=== PATIENT | female | born 1970 | race Caucasian/White ===

== ENCOUNTER → 2016-05-14 | Outpatient (CLI) | payer BC ==
--- NOTE | 2016-05-14 16:43 | REPMRS ---
Patient History The patient states she had a clinical breast exam in 04/26 No known family history of cancer. Taking hormonal contraceptives for 6 years. Digital Woman Screen Mammo: May 14, 2016 - Exam #: [id number] Bilateral CC and MLO view(s) were taken. Technologist: Jeanne Nelson, Technologist Prior study comparison: January 10, 2014, digital woman screen mammo performed at [facility]. January 04, 2013, digital woman screen mammo performed at [facility]. July 29, 2011, digital woman screen mammo performed at [facility]. FINDINGS: The breast tissue is heterogeneously dense. This may lower the sensitivity of mammography. There is a moderate amount of heterogeneously dense fibroglandular tissue which is fairly symmetric. There is no interval development of dominant mass, architectural distortion, or clustered microcalcification typical of malignancy. There has been no change in the appearance of the mammogram from the prior studies. ASSESSMENT: BI-RADS/ACR category 1 mammogram. Negative. Recommendation Routine screening mammogram of both breasts in 1 year (for women over age 40). This mammogram was interpreted with the aid of an FDA-approved computer-aided dectection system. Electronically Signed By: Eliud Rose MD 05/14/16 [id number]
== END ==
LOC: M WHC 14:14
PROVIDERS: ATTEND Nurse Practitioner Adult Health
DX: R92.2 Inconclusive mammogram (principal); Z92.0 Personal history of contraception

== ENCOUNTER → 2016-09-27 | Outpatient (CLI) | payer BC ==
--- NOTE | 2016-09-27 17:23 | REP ---
DIAGNOSTIC MAMMOGRAM, LEFT BREAST WITH LEFT BREAST ULTRASOUND: Diagnostic mammogram of the left breast is performed with multiple views obtained. Comparison made with prior study of 05/14/2016 as well as other prior exams. Reportedly there is a palpable abnormality laterally in the left breast and that area is marked on the skin with a triangular marker. Breast parenchyma is moderately heterogeneously dense. There does appear to be a rounded nodular density medially on the left CC view which is not definitely seen on the left MLO or ML views. It appears fairly well defined and smoothly marginated. No definite mass is seen at the site of the reported palpable abnormality. No clustered microcalcifications are seen. Real-time sonographic evaluation of the left breast is performed. Medially at the 10 o'clock position is a simple cyst probably corresponding to the mammographic abnormality. This measures approximately 1.3 cm in diameter. At the site of the reported palpable abnormality there is a complex cyst which measures 1.7 x 1.4 x 1.6 cm. There is a thickened wall with arterial blood flow seen within the wall of the cyst with duplex Doppler evaluation. There are internal septations. A 3 o'clock is an oval hypoechoic nodular area 1.5 x 1.0 x 1.4 cm. This could represent a solid nodule. Otherwise there is diffusely dense tissue seen with other small scattered cysts. IMPRESSION: ACR 4 suspicious. Nodular density medially on the left CC view corresponds to a simple cyst by ultrasound. At the site at the reported palpable abnormality laterally, a complex cyst is seen with a thickened wall, with arterial blood flow seen in the thickened wall of the cyst. There are internal septations. Recommend ultrasound guided biopsy. Also at 3 o'clock is a possible hypoechoic nodule only seen sonographically measuring 1.5 x 1.0 x 1.4 cm. Recommend ultrasound guided biopsy. This mammogram was interpreted with the aid of an FDA-approved computer-aided detection system. The patient states she had a clinical breast exam in 09/2016. The patient letter being requested is M4. Signed by Andrade Almaguer MD 09/30/2016 09:00 A
== END ==
LOC: M RAD 13:45
PROVIDERS: ATTEND Nurse Practitioner Family
DX: N63 Unspecified lump in breast (principal)
CPT/HCPCS: 76642; G0206

== ENCOUNTER → 2016-11-05 | Outpatient (CLI) | payer BC ==
[~2016-11-05] MED LIST: ACETAMINOPHEN 325 MG TAB As Ordered ONE; LIDOCAINE 1% MDV 20ML VIAL As Ordered ONE
--- NOTE | 2016-11-05 14:51 | REP ---
POST BIOPSY MAMMOGRAM LEFT BREAST: Post biopsy mammogram left breast performed in the MLO and CC projections. Two ultrasound guided biopsies were performed. A metallic clip is seen at the site of the prior palpable abnormality where by ultrasound a complex cystic structure was seen. Another metallic clip is seen inferiorly and laterally at the site of a second biopsy. Signed by Andrade Almaguer MD 11/05/2016 05:22 P
--- NOTE | 2016-11-05 18:13 | REP ---
LEFT BREAST BIOPSY TIMES TWO SITES: The procedure was performed by LEE Miranda under the direct supervision of Dr. Almaguer. The procedure along with its risks, benefits and complications were discussed with the patient prior to the examination. Informed consent was obtained both verbally and written. The patient was identified in the ultrasound suite and placed in a supine position. A procedural time out was performed to ensure that the correct patient, site and procedure were being performed. The two sites of concern were marked using ultrasound guidance. An appropriate site was chosen for needle entry and these areas were marked prepped and draped in the usual sterile fashion. Local infiltrative anesthesia was achieved using 1% Xylocaine. 6 core biopsy specimens were obtained from the first location. Ultrasound imaging was used to monitor the location of the needle placement for each pass. A marker clip was placed. The second area of concern was identified using real-time ultrasonography. 10 core biopsy specimens were obtained from the site. Ultrasound imaging was used to monitor the location of the needle placement for each pass. Specimens were placed in formalin and sent to pathology for further evaluation. Results pending. Following the procedure the wound was cleaned and compressed. Steri-strips and sterile gauze were applied. The patient was monitored for an hour post-procedure. The second biopsy site had a small hematoma. A 1-hour post procedure ultrasound was obtained to evaluate this hematoma. It was seen that there was no change to the hematoma. The patient tolerated the procedure well and was discharged home. IMPRESSION: Successful ultrasound guided core biopsy of two left breast lesions of concern. Reviewed by LEE Sanchez 11/05/2016 06:48 PEdited and Signed by Andrade Almaguer MD 11/06/2016 05:00 P
== END ==
LOC: M RADPRO 08:36
PROVIDERS: ATTEND Surgery
DX: D24.2 Benign neoplasm of left breast (principal); Z72.0 Tobacco use; Z88.1 Allergy status to other antibiotic agents
CPT/HCPCS: 19083; 19084; 88305; G0206

== ENCOUNTER → 2018-06-22 | Outpatient (CLI) | payer BC ==
--- NOTE | 2018-06-22 11:12 | REP ---
Digital diagnostic bilateral mammography with CAD, 3-D tomography, and focused right breast sonography: History: Palpable lump in the right breast times 3 weeks. Comparison mammography May 14, 2016 and September 27, 2016. January 10, 2014 and January 04, 2013 prior studies are also reviewed. Mammographic findings: Breast parenchyma is heterogeneously dense in a pattern which may inhibit the sensitivity of mammography. Nodular opacities are present bilaterally. There is a new nodular opacity 17 mm in diameter at the level of the palpable lump projecting in the upper outer quadrant of the right breast. There are three nodular opacities at 12 o'clock in the right breast. These are more prominent than on the prior study. The left breast is unchanged. There has been some bilateral involutional change. Sonographic findings: Focused a right breast sonography is performed. At the site of the palpable lump at 10 o'clock, there is a 1.0 x 1.1 x 1.4 cm cyst located 5.4 cm from the nipple. This is felt to correspond with the mammographic opacity. It has a benign appearance. There are multiple smaller cysts at 10 o'clock. At 12 o'clock there are three cysts which are also simple and benign by sonographic criteria. These measure as follows: 1.5 x 0.6 x 1.4 cm, 1.0 x 0.5 x 1.1 cm, and 1.3 x 0.7 x 0.9 cm. Impression: BIRADS 2: BI-RADS/ACR category 2 mammogram. Benign Findings. BI-RADS category 2 benign findings. Simple cyst seen at the site of the palpable lump. Simple cysts are also noted at 12 o'clock in the right breast. Clinical followup is advised. Repeat screening mammography suggested 1 year. This patient's estimated [facility] lifetime risk assessment for the breast cancer is 7.0 %. This mammogram was interpreted with the aid of an FDA-approved computer-aided detection system. The patient states she had a clinical breast exam in June 2018. The patient letter being requested is m2. Electronically Signed by Corby Rose MD 06/22/2018 07:17 P
== END ==
LOC: M RAD 09:05
PROVIDERS: ATTEND Internal Medicine
DX: N63.12 Unspecified lump in the right breast, upper inner quadrant (principal)
CPT/HCPCS: 76642; 77066; G0279

== ENCOUNTER → 2019-08-06 | Outpatient (CLI) | payer BC ==
--- NOTE | 2019-08-07 08:57 | REP ---
BILATERAL MAMMOGRAM WITH 3D TOMOSYNTHESIS: No family history of breast cancer. Tyrer-zick lifetime risk of breast cancer 6.9%. Comparison mammogram 06/22/2018 as well as other prior exams. MLO and CC views of both breasts performed with 3D tomosynthesis. There is moderately dense heterogeneous fibroglandular tissue bilaterally limiting the sensitivity of the mammogram. Since the prior study, the three prominent nodules representing benign cysts in the right breast have decreased in size. There are once again, small smoothly marginated nodules seen bilaterally compatible with bilateral small cysts. No spiculated mass is seen bilaterally. No suspicious clusters of microcalcifications are seen. Two metallic clips are again seen in the lateral left breast. These are from prior benign biopsy in 2017. IMPRESSION: ACR 2 BENIGN FINDINGS. Decreased size of three prominent benign cysts in the right breast when compared to the prior study 06/22/2018. Once again, there are small smooth nodules seen bilaterally compatible with bilateral cysts. No suspicious spiculated mass or architectural distortion. No clustered microcalcifications. Recommend followup mammogram in 1 year. This mammogram was interpreted with the aid of an FDA-approved computer-aided detection system. The patient states that she or he has not had a clinical breast exam in over a year. Patient letter requested is M1.
== END ==
LOC: M WHC 13:56
PROVIDERS: ATTEND Physician Assistant Medical
DX: Z12.31 Encounter for screening mammogram for malignant neoplasm of breast (principal); N60.11 Diffuse cystic mastopathy of right breast

== ENCOUNTER → 2021-04-19 | Outpatient (CLI) | payer BC | LOC: M WHC 10:27 | PROVIDERS: ATTEND Nurse Practitioner Adult Health | DX: Z12.31 Encounter for screening mammogram for malignant neoplasm of breast (principal); N60.09 Solitary cyst of unspecified breast ==

== ENCOUNTER → 2021-05-03 | Outpatient (CLI) | payer BC | LOC: M WHC 08:43 | PROVIDERS: ATTEND Nurse Practitioner Adult Health | DX: R92.2 Inconclusive mammogram (principal) ==

== ENCOUNTER → 2021-11-26 | Outpatient (REF) | payer BC | LOC: M WUC 16:25 | PROVIDERS: ATTEND Physician Assistant | DX: N39.0 Urinary tract infection, site not specified (principal) ==

== ENCOUNTER → 2021-12-03 | Outpatient (REF) | payer BC | LOC: M WUC 09:26 | PROVIDERS: ATTEND Physician Assistant | DX: R30.0 Dysuria (principal) ==

== ENCOUNTER → 2022-05-20 | Outpatient (CLI) | payer BC | LOC: M WHC 13:51 | PROVIDERS: ATTEND Nurse Practitioner Adult Health | DX: N63.20 Unspecified lump in the left breast, unspecified quadrant (principal) | CPT/HCPCS: 76642; 77066; G0279 ==

== ENCOUNTER → 2023-05-22 | Outpatient (CLI) | payer BC | LOC: M WHC 14:10 | PROVIDERS: ATTEND Nurse Practitioner Adult Health | DX: Z12.31 Encounter for screening mammogram for malignant neoplasm of breast (principal) ==

== ENCOUNTER → 2024-06-18 | Outpatient (CLI) | payer BC | LOC: M WHC 13:29 | PROVIDERS: ATTEND Nurse Practitioner Adult Health | DX: Z12.31 Encounter for screening mammogram for malignant neoplasm of breast (principal); R92.333 Mammographic heterogeneous density, bilateral breasts ==